=== PATIENT | male | born 1945 | race Caucasian/White ===

== ENCOUNTER 2021-01-24 11:41 | Inpatient (IN) | payer MEDICARE ==
[~2021-01-24] VITALS: Ht 198.1 cm; Wt 132.3 kg
[2021-01-24] VITALS (10 sets, daily range): BP systolic 119–159; BP diastolic 45–73
--- NOTE | 2021-01-24 12:28 | PHYS DOC ---
Past Medical History Past Medical History: No Pertinent History Past Surgical History: No Surgical History Smoking Status: Never Smoker Alcohol Use: None Drug Use: None General Adult EDM: Chief Complaint: HIP PAIN HPI: HPI: 75-year-old male presents complaining of right-sided hip pain after he fell directly on his hip just prior to arrival when he slipped and fell mechanically. He denies any preceding symptoms. He reports that any movement of his thigh or hip area causes extreme 10/10 pain. He is able to feel all sensation in his distal right leg. He denies any pain in the left side of his hip, low back, thigh, knee, sabillon or foot. The patient denies nausea, vomiting, fever, chills, chest pain, shortness of breath or any other complaints. Review of Systems: Review of Systems: ROS otherwise negative except for what was mentioned in the HPI Heart Score: C/O Chest Pain: No Allergies: Allergies: Allergies Coded Allergies Type Severity Reaction Last Updated Verified No Known Drug Allergies 01/24/21 No Physical Exam: PE: Constitutional: No acute distress, non-toxic appearance. HENT: Atraumatic, normocephalic. Eyes: Conjunctiva normal, normal tracking. Neck: Normal range of motion, supple. Cardiovascular: Heart rate regular rhythm. 2+ dorsalis pedis pulses, capillary refill less than 2 seconds bilateral lower extremities Lungs & Thorax: No respiratory distress, symmetrical expansion. Abdomen: Soft, no tenderness Skin: Warm, dry, no overlying skin changes over the lower extremities. Extremities: Tenderness is present to the right iliac crest area and right acetabular area, there is no left-sided tenderness. There is exquisite tenderness to the right hip with logroll of the right thigh. The patient is not able to bear weight. [No tenderness to the feet, ankles, leg, thigh, bilatera lly]. Neurologic: Alert and oriented X 3. Normal motor function of the lower extremities bilaterally. Normal sensory function of the lower extremities. No focal deficits noted. GCS 15. Psychologic: Affect normal, judgment normal, mood normal. Current Patient Data: Labs: Laboratory Tests Test 01/24/21 12:20 White Blood Count 11.1 x10^3/uL (4.0-11.0) Red Blood Count 4.60 x10^6/uL (4.30-5.70) Hemoglobin 14.9 g/dL (13.0-17.5) Hematocrit 42.5 % (39.0-53.0) Mean Corpuscular Volume 92 fL (79-100) Mean Corpuscular Hemoglobin 33 pg (25-35) Mean Corpuscular Hemoglobin Concent 35 g/dL (31-37) Red Cell Distribution Width 13.1 % (11.5-14.5) Platelet Count 189 x10^3/uL (140-400) Neutrophils (%) (Auto) 86 % (31-73) Lymphocytes (%) (Auto) 8 % (24-48) Monocytes (%) (Auto) 5 % (0-9) Eosinophils (%) (Auto) 1 % (0-3) Basophils (%) (Auto) 0 % (0-3) Neutrophils # (Auto) 9.5 x10^3/uL (1.8-7.7) Lymphocytes # (Auto) 0.9 x10^3/uL (1.0-4.8) Monocytes # (Auto) 0.6 x10^3/uL (0.0-1.1) Eosinophils # (Auto) 0.1 x10^3/uL (0.0-0.7) Basophils # (Auto) 0.0 x10^3/uL (0.0-0.2) Sodium Level 134 mmol/L (136-145) Potassium Level 3.7 mmol/L (3.5-5.1) Chloride Level 101 mmol/L (98-107) Carbon Dioxide Level 27 mmol/L (21-32) Anion Gap 6 (6-14) Blood Urea Nitrogen 17 mg/dL (8-26) Creatinine 1.1 mg/dL (0.7-1.3) Estimated GFR (Cockcroft-Gault) 65.6 Glucose Level 105 mg/dL (70-99) Calcium Level 8.8 mg/dL (8.5-10.1) Vital Signs: Vital Signs Date Time Temp Pulse Resp B/P (MAP) Pulse Ox O2 Delivery O2 Flow Rate FiO2 01/24/21 13:21 18 99 Room Air 01/24/21 12:38 16 100 Room Air 01/24/21 12:24 97.8 55 16 158/84 (108) 99 Room Air 97.8 Radiology/Procedures: Radiology/Procedures: AP portable chest radiograph 01/24/2021 Clinical History: Preoperative evaluation.. An AP supine portable digital radiograph of the chest was obtained. No previous studies are available for comparison. The costophrenic angles are cut off on this radiograph, left greater than right. The cardiac silhouette is borderline enlarged. The thoracic aorta is mildly tortuous. No acute pulmonary infiltrate is seen. No pleural effusion or pneumothorax is noted. An old healed fracture of the mid diaphysis of the right clavicle is seen. Degenerative changes are seen involving the thoracic spine along with both shoulders. IMPRESSION: No acute abnormality is seen. Electronically signed by: Sanjeev Blanco MD (01/24/2021 1:33 PM) PROCEDURE: HIP RIGHT 2V WITH PELVIS AP pelvis to include AP and lateral radiographs of the right hip 01/24/2021 CLINICAL HISTORY: 2 AP digital radiographs of pelvis to include both hips were obtained. AP and lateral radiographs of the right hip were obtained. An acute comminuted subcapital fracture of the right femoral neck is seen. The fracture fragments are slightly impacted. No dislocation is seen. The left hip is intact. No pelvic bone fracture is seen. Mild to moderate degenerative changes are seen involving both hips. IMPRESSION: Acute comminuted subcapital fracture of the right femoral neck. Electronically signed by: Sanjeev Blanco MD (01/24/2021 1:32 PM) Course & Med Decision Making: Course & Med Decision Making Radiology confirms a right femoral neck fracture with minimal displacement. Patient was given fentanyl and then morphine for pain control. Patient will be admitted to the hospital under Dr. Vance. I discussed case with Dr. Quinteros our orthopedic surgeon on-call, patient was made n.p.o. My Orders - REJI TREVINO DO Procedure Category Date Status Time Hip Right 2v With RAD 01/24/21 Taken Pelvis 12:34 Cbc W [employer] LAB 01/24/21 Complete 12:24 Basic Metabolic Panel LAB 01/24/21 Complete 12:24 Fentanyl Pf Vial PHA 01/24/21 Complete (Fentanyl 2ml Vial) 12:30 Chest Ap Only RAD 01/24/21 Taken 13:01 Morphine Sulfate PHA 01/24/21 Complete (Morphine Sulfate) 13:15 Sars Cov2 ([place]) LAB 01/24/21 Logged 13:04 Sars Antigen [place] Rapid LAB 01/24/21 Logged 13:04 [place] Order ADT 01/24/21 Transmitted 13:23 Code Status CODE 01/24/21 Transmitted 13:23 Vital Signs, Per Unit DU 01/24/21 In Process Protocol 13:23 Nothing By Mouth DIET 01/24/21 Transmitted Dinner Bedrest DU 01/24/21 In Process 13:23 Ondansetron Pf PHA 01/24/21 Logged (Zofran) 13:30 Fentanyl Pf Vial PHA 01/24/21 Logged (Fentanyl 2ml Vial) 13:30 Consult Physician By CONS 01/24/21 Transmitted Name 13:23 Departure Departure Impression: Primary Impression: Closed displaced fracture of right femoral neck Disposition: ADMITTED INPATIENT Admitting Physician: ASHUTOSH (Pinky) Condition: STABLE REJI TREVINO DO Jan 24, 2021 12:28
[2021-01-24] MEDS ORDERED: fentaNYL PF VIAL 100 MCG/2 ML VIAL IVP ONE (12:30)
[2021-01-24 12:47] LABS: BASO % 0 % (0-3); EOS # 0.1 x10^3/uL (0.0-0.7); EOS % 1 % (0-3); HEMATOCRIT 42.5 % (39.0-53.0); HEMOGLOBIN 14.9 g/dL (13.0-17.5); LYMPH # 0.9 x10^3/uL (1.0-4.8); LYMPH % 8 % (24-48); MEAN CORPUSCULAR HEMOGLOBIN 33 pg (25-35); MEAN CORPUSCULAR HGB CONC 35 g/dL (31-37); MEAN CORPUSCULAR VOLUME 92 fL (79-100); MONO # 0.6 x10^3/uL (0.0-1.1); MONO % 5 % (0-9); NEUT # 9.5 x10^3/uL (1.8-7.7); NEUT % 86 % (31-73); PLATELET COUNT 189 x10^3/uL (140-400); RED CELL DISTRIBUTION WIDTH 13.1 % (11.5-14.5); WHITE BLOOD COUNT 11.1 x10^3/uL (4.0-11.0)
[2021-01-24 12:58] LABS: CALCIUM 8.8 mg/dL (8.5-10.1); CREATININE 1.1 mg/dL (0.7-1.3); GFR 65.6; POTASSIUM 3.7 mmol/L (3.5-5.1)
[2021-01-24] MEDS ORDERED: MORPHINE SULFATE 10 MG/ML VIAL. IV ONE (13:15)
[2021-01-24] MEDS ORDERED: ONDANSETRON PF 4 MG/2 ML VIAL. IVP PRN (13:30)
--- NOTE | 2021-01-24 13:34 | RAD ---
AP pelvis to include AP and lateral radiographs of the right hip 01/24/2021 CLINICAL HISTORY: 2 AP digital radiographs of pelvis to include both hips were obtained. AP and later al radiographs of the right hip were obtained. An acute comminuted subcapital fracture of the right f emoral neck is seen. The fracture fragments are slightly impacted. No dislocation is seen. The left h ip is intact. No pelvic bone fracture is seen. Mild to moderate degenerative changes are seen involvi ng both hips. IMPRESSION: Acute comminuted subcapital fracture of the right femoral neck. Electronically signed by: Sanjeev Blanco MD (01/24/2021 1:32 PM) [id number]
--- NOTE | 2021-01-24 13:35 | RAD ---
AP portable chest radiograph 01/24/2021 Clinical History: Preoperative evaluation.. An AP supine portable digital radiograph of the chest was obtained. No previous studies are available for comparison. The costophrenic angles are cut off on this radiogr aph, left greater than right. The cardiac silhouette is borderline enlarged. The thoracic aorta is mi ldly tortuous. No acute pulmonary infiltrate is seen. No pleural effusion or pneumothorax is noted. A n old healed fracture of the mid diaphysis of the right clavicle is seen. Degenerative changes are se en involving the thoracic spine along with both shoulders. IMPRESSION: No acute abnormality is seen. Electronically signed by: Sanjeev Blanco MD (01/24/2021 1:33 PM) [id number]
--- NOTE | 2021-01-24 13:42 | PDOC1 ---
History and Physical Date of Admission Date of Admission DATE: 01/24/21 TIME: 13:41 Identification/Chief Complaint Chief Complaint right hip pain after fall today History of Present Illness History of Present Illness 75-year-old male presented to ER complaining of right-sided hip pain after he fell directly on his hip just prior to arrival when he slipped and fell mechanically. He was helping a friend caulk around a basement when he slipped and fell on his right hip on a concrete surface He reports that any movement of his thigh or hip area causes extreme 10/10 pain. He is able to feel all sensation in his distal right leg. He denies any pain in the left side of his hip, low back, thigh, knee, sabillon or foot. denies nausea, vomiting, fever, chills, chest pain, shortness of breath . bp high in ER , likely due to pain Past Medical History Past Medical History Past Medical History Past Medical History: No Pertinent History Past Surgical History: No Surgical History Smoking Status: Never Smoker Alcohol Use: None Drug Use: None FHX CAD Cardiovascular: No pertinent hx Pulmonary: No pertinent hx GI: No pertinent hx Heme/Onc: No pertinent hx Hepatobiliary: No pertinent hx Renal/: No pertinent hx Endocrine: No pertinent hx Family History Family History: High Cholestrol, Hypertension Social History Smoke: No ALCOHOL: occassional Drugs: None Current Problem List Problem List Problems Medical Problems: (1) Closed displaced fracture of right femoral neck Status: Acute Current Medications Current Medications Current Medications Fentanyl Citrate (Fentanyl 2ml Vial) 75 mcg 1X ONCE IVP Last administered on 01/24/21at 12:38; Start 01/24/21 at 12:30; Stop 01/24/21 at 12:31; Status DC Morphine Sulfate (Morphine Sulfate) 8 mg 1X ONCE IV Last administered on 01/24/21at 13:21; Start 01/24/21 at 13:15; Stop 01/24/21 at 13:16; Status DC Ondansetron HCl (Zofran) 4 mg PRN Q8HRS PRN IVP NAUSEA/VOMITING; Start 01/24/21 at 13:30; Stop 01/25/21 at 13:29 Fentanyl Citrate (Fentanyl 2ml Vial) 50 mcg PRN Q1HR PRN IVP PAIN; Start 01/24/21 at 13:30; Stop 01/25/21 at 13:29 Allergies Allergies: Coded Allergies: No Known Drug Allergies (Unverified , 01/24/21) ROS Review of System 14 pt ros otherwise neg General: No: Chills, Night Sweats, Fatigue, Malaise, Appetite, Other PSYCHOLOGICAL ROS: No: Anxiety, Behavioral Disorder, Concentration difficultie, Decreased libido, Depression, Disorientation, Hallucinations, Hostility, Irritablity, Memory difficulties, Mood Swings, Obsessive thoughts, Physical abuse, Sexual abuse, Sleep disturbances, Suicidal ideation, Other Eyes: No Blurry vision, No Decreased vision, No Double vision, No Dry eyes, No Excessive tearing, No Eye Pain, No Itchy Eyes, No Loss of vision, No Photophobia, No Scotomata, No Uses contacts, No Uses glasses, No Other HEENT: No: Heacaches, Visual Changes, Hearing change, Nasal congestion, Nasal discharge, Oral lesions, Sinus pain, Sore Throat, Epistaxis, Sneezing, Snoring, Tinnitus, Vertigo, Vocal changes, Other ALLERGY AND IMMUNOLOGY: No: Hives, Insect Bite Sensitivity, Itchy/Watery Eyes, Nasal Congestion, Post Nasal Drip, Seasonal Allergies, Other Hematological and Lymphatic: No: Bleeding Problems, Blood Clots, Blood Transfusions, Brusing, Night Sweats, Pallor, Swollen Lymph Nodes, Other ENDOCRINE: No: Breast Changes, Galactorrhea, Hair Pattern Changes, Hot Flashes, Malaise/lethargy, Mood Swings, Palpitations, Polydipsia/polyuria, Skin Changes, Temperature Intolerance, Unexpected Weight Changes, Other Respiratory: No: Cough, Hemoptysis, Orthopnea, Pleuritic Pain, Shortness of breath, SOB with excertion, Sputum Changes, Stridor, Tachypnea, Wheezing, Other Cardiovascular: No Chest Pain, No Palpitations, No Orthopnea, No Paroxysmal Noc. Dyspnea, No Edema, No Lt Headedness, No Other Gastrointestinal: No Nausea, No Vomiting, No Abdominal Pain, No Diarrhea, No Constipation, No Melena, No Hematochezia, No Other Genitourinary: No Dysuria, No Frequency, No Incontinence, No Hematuria, No Retention, No Discharge, No Urgency, No Pain, No Flank Pain, No Other, No , No , No , No , No , No , No Musculoskeletal: Yes Gait Disturbance, Yes Joint Pain, Yes Joint Stiffness, Yes Joint Swelling; No Muscle Pain, No Muscular Weakness, No Pain In:, No Swelling In:, No Other Neurological: Yes Gait Disturbance; No Behavorial Changes, No Bowel/Bladder ControlChng, No Confusion, No Dizziness, No Headaches, No Impaired Coord/balance, No Memory Loss, No Numbness/Tingling, No Seizures, No Speech Problems, No Tremors, No Visual Changes, No Weakness, No Other Skin: No Dry Skin, No Eczema, No Hair Changes, No Lumps, No Mole Changes, No Mottling, No Nail Changes, No Pruritus, No Rash, No Skin Lesion Changes, No Other, No Acne Physical Exam Physical Exam Eyes: Conjunctiva normal, EOMI, PERRLA Neck: Normal range of motion, supple. Cardiovascular: Heart rate regular rhythm. 2+ dorsalis pedis pulses, capillary refill less than 2 seconds bilateral lower extremities Lungs & Thorax: No respiratory distress, symmetrical expansion. Abdomen: Soft, no tenderness Skin: Warm, dry, no overlying skin changes over the lower extremities. Extremities: Tenderness is present to the right iliac crest area and right ac etabular area, there is no left-sided tenderness. There is exquisite tenderness to the right hip with logroll of the right thigh. The patient is not able to bear weight. [No tenderness to the feet, ankles, leg, thigh, bilaterally]. Neurologic: Alert and oriented X 3. Normal motor function of the lower extremities bilaterally. Normal sensory function of the lower extremities. No focal deficits noted. Psychologic: Affect normal, judgment normal, mood normal. General: Alert, Oriented X3, Cooperative, mild distress HEENT: Atraumatic, PERRLA, EOMI, Mucous membr. moist/pink Lungs: Clear to auscultation, Normal air movement Heart: S1S2, RRR, no thrills, no jug vein distention Breasts: Not examined Abdomen: Normal bowel sounds, Soft Rectal Exam: not examined Extremities: No cyanosis Neuro: Normal speech, Sensation intact, Cranial nerves 3-12 NL Psych/Mental Status: Mental status NL, Mood NL Vitals Vitals Vital Signs Date Time Temp Pulse Resp B/P (MAP) Pulse Ox O2 Delivery O2 Flow Rate FiO2 01/24/21 13:21 18 99 Room Air 01/24/21 12:24 97.8 55 158/84 (108) 97.8 Labs Labs Laboratory Tests Test 01/24/21 12:20 White Blood Count 11.1 x10^3/uL (4.0-11.0) Red Blood Count 4.60 x10^6/uL (4.30-5.70) Hemoglobin 14.9 g/dL (13.0-17.5) Hematocrit 42.5 % (39.0-53.0) Mean Corpuscular Volume 92 fL (79-100) Mean Corpuscular Hemoglobin 33 pg (25-35) Mean Corpuscular Hemoglobin Concent 35 g/dL (31-37) Red Cell Distribution Width 13.1 % (11.5-14.5) Platelet Count 189 x10^3/uL (140-400) Neutrophils (%) (Auto) 86 % (31-73) Lymphocytes (%) (Auto) 8 % (24-48) Monocytes (%) (Auto) 5 % (0-9) Eosinophils (%) (Auto) 1 % (0-3) Basophils (%) (Auto) 0 % (0-3) Neutrophils # (Auto) 9.5 x10^3/uL (1.8-7.7) Lymphocytes # (Auto) 0.9 x10^3/uL (1.0-4.8) Monocytes # (Auto) 0.6 x10^3/uL (0.0-1.1) Eosinophils # (Auto) 0.1 x10^3/uL (0.0-0.7) Basophils # (Auto) 0.0 x10^3/uL (0.0-0.2) Sodium Level 134 mmol/L (136-145) Potassium Level 3.7 mmol/L (3.5-5.1) Chloride Level 101 mmol/L (98-107) Carbon Dioxide Level 27 mmol/L (21-32) Anion Gap 6 (6-14) Blood Urea Nitrogen 17 mg/dL (8-26) Creatinine 1.1 mg/dL (0.7-1.3) Estimated GFR (Cockcroft-Gault) 65.6 Glucose Level 105 mg/dL (70-99) Calcium Level 8.8 mg/dL (8.5-10.1) Laboratory Tests Test 01/24/21 12:20 White Blood Count 11.1 x10^3/uL (4.0-11.0) Red Blood Count 4.60 x10^6/uL (4.30-5.70) Hemoglobin 14.9 g/dL (13.0-17.5) Hematocrit 42.5 % (39.0-53.0) Mean Corpuscular Volume 92 fL (79-100) Mean Corpuscular Hemoglobin 33 pg (25-35) Mean Corpuscular Hemoglobin Concent 35 g/dL (31-37) Red Cell Distribution Width 13.1 % (11.5-14.5) Platelet Count 189 x10^3/uL (140-400) Neutrophils (%) (Auto) 86 % (31-73) Lymphocytes (%) (Auto) 8 % (24-48) Monocytes (%) (Auto) 5 % (0-9) Eosinophils (%) (Auto) 1 % (0-3) Basophils (%) (Auto) 0 % (0-3) Neutrophils # (Auto) 9.5 x10^3/uL (1.8-7.7) Lymphocytes # (Auto) 0.9 x10^3/uL (1.0-4.8) Monocytes # (Auto) 0.6 x10^3/uL (0.0-1.1) Eosinophils # (Auto) 0.1 x10^3/uL (0.0-0.7) Basophils # (Auto) 0.0 x10^3/uL (0.0-0.2) Sodium Level 134 mmol/L (136-145) Potassium Level 3.7 mmol/L (3.5-5.1) Chloride Level 101 mmol/L (98-107) Carbon Dioxide Level 27 mmol/L (21-32) Anion Gap 6 (6-14) Blood Urea Nitrogen 17 mg/dL (8-26) Creatinine 1.1 mg/dL (0.7-1.3) Estimated GFR (Cockcroft-Gault) 65.6 Glucose Level 105 mg/dL (70-99) Calcium Level 8.8 mg/dL (8.5-10.1) Images Images PATIENT: EVER PUENTES ACCOUNT: [id number] : 1945 LOCATION: ER AGE: 75 SEX: M EXAM STATUS: PRE ER ORD. PHYSICIAN: REJI TREVINO DO REASON: hip pain from trauma not ready 12:40 PROCEDURE: HIP RIGHT 2V WITH PELVIS AP pelvis to include AP and lateral radiographs of the right hip 01/24/2021 CLINICAL HISTORY: 2 AP digital radiographs of pelvis to include both hips were obtained. AP and lateral radiographs of the right hip were obtained. An acute comminuted subcapital fracture of the right femoral neck is seen. The fracture fragments are slightly impacted. No dislocation is seen. The left hip is intact. No pelvic bone fracture is seen. Mild to moderate degenerative changes are seen involving both hips. IMPRESSION: Acute comminuted subcapital fracture of the right femoral neck. Electronically signed by: Sanjeev Blanco MD (01/24/2021 1:32 PM) [id number] DICTATED and SIGNED BY: SANJEEV BLANCO MD DATE: 01/24/21 [id number] VTE Prophylaxis Ordered VTE Prophylaxis Devices: Contraindicated VTE Pharmacological Prophylaxi: Yes Assessment/Plan Assessment/Plan IMPRESSION: Mechanical fall Acute comminuted subcapital fracture of the right femoral neck. Obesity PLAN ADMIT NPO CONSULT ORTHO DVT prophylaxis iv fluid support iv pain control PT/OT MAY NEED SNF VS HOME HEALTH POST SURGERY norvasc 5 mg po daily, observe iv pain control d/w er Justifications for Admission Other Justification RACHELLE NICOLE MD Jan 24, 2021 13:42
[2021-01-24] MEDS ORDERED: ZOLPIDEM 5 MG TABLET. PO PRN (14:45)
[2021-01-24] MEDS ORDERED: 0.9 % SODIUM CHLORIDE 10 ML DISP.SYRIN. IV PRN ×2 (14:45→17:00)
[2021-01-24] MEDS ORDERED: guaiFENesin ORAL 200 MG/10 ML LIQUID. PO PRN (14:45)
[2021-01-24] MEDS ORDERED: DOCUSATE SODIUM 100 MG CAPSULE. PO PRN (14:45)
[2021-01-24] MEDS ORDERED: ALBUTEROL SULFATE 2.5 MG/3 ML NEBU. NEB PRN (14:45)
[2021-01-24] MEDS ORDERED: ACETAMINOPHEN 325 MG TABLET. PO PRN (14:45)
[2021-01-24] MEDS ORDERED: SODIUM PHOSPHATES 19/7GM 133 ML ENEMA. PR PRN (14:45)
[2021-01-24] MEDS ORDERED: ONDANSETRON PF 4 MG/2 ML VIAL. IV PRN (14:45)
[2021-01-24] MEDS ORDERED: MAG HYDROX/ALUMINUM HYD/SIMETH 30 ML ORAL.SUSP PO PRN (14:45)
[2021-01-24] MEDS ORDERED: LORazepam 0.5 MG TABLET PO PRN (14:45)
[2021-01-24] MEDS ORDERED: HYDROmorphone 2 MG/ML VIAL IV PRN (14:45)
[2021-01-24] MEDS ORDERED: cloNIDine HCL 0.1 MG TABLET PO PRN (14:45)
[2021-01-24] MEDS: IV NORMAL SALINE 1000ML BAG 1,000 ML IV SCH ×2 (14:45→17:00)
[2021-01-24] MEDS: ENOXAPARIN 40 MG/0.4 ML SYRINGE. SQ SCH (15:00)
[2021-01-24] MEDS ORDERED: LIDOCAINE 2% PF 5 ML VIAL. ONE (15:11)
[2021-01-24] MEDS ORDERED: PROPOFOL 10 MG/ML (20ML) VIAL. IV ONE (15:11)
[2021-01-24] MEDS: fentaNYL PF VIAL 100 MCG/2 ML VIAL IVP PRN ×4 (15:45→21:23)
--- NOTE | 2021-01-24 16:52 | PDOC2 ---
CONSULT Date of Consult Date of Consult DATE: 01/24/21 TIME: 16:47 Reason for Consult Reason for Consult: Right femoral neck fracture. Identification/Chief Complaint Chief Complaint Right hip pain after ground-level fall. Source Source: Patient History of Present Illness Reason for Visit: Jose Maria is a pleasant 75-year-old male, admitted through the ER after ground-level fall. He was helping a friend caulk their foundation due to some leaks. He slipped on a wet outdoor rug and landed directly on the lateral side of his right hip. He had immediate pain and inability to bear weight. He was brought in via the ER where radiographs revealed a transcervical femoral neck fracture. He has been admitted for further management and operative treatment. Denies any prior history of injury to his right hip. Was ambulatory independently without assistive devices prior to his fall. Lives in a single-story home with no steps. Past Medical History Cardiovascular: No pertinent hx Pulmonary: No pertinent hx GI: No pertinent hx Heme/Onc: No pertinent hx Hepatobiliary: No pertinent hx Renal/: No pertinent hx Endocrine: No pertinent hx Family History Family History: High Cholestrol, Hypertension Social History No ALCOHOL: occassional Drugs: None Current Problem List Problem List Problems Medical Problems: (1) Closed displaced fracture of right femoral neck Status: Acute Current Medications Current Medications Current Medications Fentanyl Citrate (Fentanyl 2ml Vial) 75 mcg 1X ONCE IVP Last administered on 01/24/21at 12:38; Start 01/24/21 at 12:30; Stop 01/24/21 at 12:31; Status DC Morphine Sulfate (Morphine Sulfate) 8 mg 1X ONCE IV Last administered on 01/24/21at 13:21; Start 01/24/21 at 13:15; Stop 01/24/21 at 13:16; Status DC Ondansetron HCl (Zofran) 4 mg PRN Q8HRS PRN IVP NAUSEA/VOMITING Last administered on 01/24/21at 15:37; Start 01/24/21 at 13:30; Stop 01/24/21 at 16:11; Status DC Fentanyl Citrate (Fentanyl 2ml Vial) 50 mcg PRN Q1HR PRN IVP PAIN Last administered on 01/24/21at 15:45; Start 01/24/21 at 13:30; Stop 01/25/21 at 13:29 Sodium Chloride (Normal Saline Flush) 3 ml QSHIFT PRN IV AFTER MEDS AND BLOOD DRAWS; Start 01/24/21 at 14:45 Sodium Chloride 1,000 ml @ 100 mls/hr Q10H IV ; Start 01/24/21 at 14:45 Ondansetron HCl (Zofran) 4 mg PRN Q4HRS PRN IV NAUSEA/VOMITING; Start 01/24/21 at 14:45 Zolpidem Tartrate (Ambien) 5 mg PRN QHS PRN PO INSOMNIA; Start 01/24/21 at 14:45 Acetaminophen (Tylenol) 650 mg PRN Q4HRS PRN PO TEMP OVER 100.4F OR MILD PAIN; Start 01/24/21 at 14:45 Al Hydroxide/Mg Hydroxide (Mylanta Plus Xs) 30 ml PRN DAILY PRN PO HEARTBURN / GAS; Start 01/24/21 at 14:45 Clonidine HCl (Catapres) 0.1 mg PRN Q6HRS PRN PO SBP>160 OR DBP>90; Start 01/24/21 at 14:45 Sodium Monofluorophosphate (Fleet Adult) 133 ml PRN DAILY PRN IN CONSTIPATION; Start 01/24/21 at 14:45 Docusate Sodium (Colace) 100 mg PRN BID PRN PO HARD STOOLS; Start 01/24/21 at 14:45 Albuterol Sulfate (Ventolin Neb Soln) 2.5 mg PRN Q4HRS PRN NEB SHORTNESS OF BREATH; Start 01/24/21 at 14:45 Guaifenesin (Robitussin) 200 mg PRN Q4HRS PRN PO COUGH; Start 01/24/21 at 14:45 Lorazepam (Ativan) 0.5 mg PRN Q4HRS PRN PO ANXIETY / AGITATION; Start 01/24/21 at 14:45 Enoxaparin Sodium (Lovenox 40mg Syringe) 40 mg Q24H SQ ; Start 01/24/21 at 15:00 Amlodipine Besylate (Norvasc) 5 mg DAILY07 PO ; Start 01/24/21 at 14:45 Hydromorphone HCl (Dilaudid) 0.6 mg PRN Q3HRS PRN IV SEVERE PAIN 7-10; Start 01/24/21 at 14:45 Propofol (Diprivan) 200 mg STK-MED ONCE IV ; Start 01/24/21 at 15:11; Stop 01/24/21 at 15:12; Status DC Lidocaine HCl (Lidocaine Pf 2% Vial) 5 ml STK-MED ONCE .ROUTE ; Start 01/24/21 a t 15:11; Stop 01/24/21 at 15:12; Status DC Cefazolin Sodium 3 gm/Dextrose 100 ml @ 200 mls/hr 1X PREOP PRN IV PRIOR TO PROCEDURE; Start 01/24/21 at 17:00; Stop 01/25/21 at 16:59 Allergies Allergies: Coded Allergies: No Known Drug Allergies (Unverified , 01/24/21) ROS Musculoskeletal: Yes Gait Disturbance, Yes Joint Pain, Yes Joint Stiffness, Yes Joint Swelling, Yes Muscle Pain, Yes Muscular Weakness, Yes Pain In:, Yes Swelling In:, Yes Other Physical Exam General: Alert, Oriented X3, Cooperative MUSCULOSKELETAL: Abnormal exam of right (Right lower extremity is shortened and externally rotated. Limited range of motion secondary to pain. Distal neurovascular examination is intact.) Vitals VITALS Vital Signs Date Time Temp Pulse Resp B/P (MAP) Pulse Ox O2 Delivery O2 Flow Rate FiO2 01/24/21 13:51 14 Room Air 01/24/21 13:21 99 01/24/21 12:24 97.8 55 158/84 (108) 97.8 Labs Labs Laboratory Tests Test 01/24/21 12:20 01/24/21 13:22 White Blood Count 11.1 x10^3/uL (4.0-11.0) Red Blood Count 4.60 x10^6/uL (4.30-5.70) Hemoglobin 14.9 g/dL (13.0-17.5) Hematocrit 42.5 % (39.0-53.0) Mean Corpuscular Volume 92 fL (79-100) Mean Corpuscular Hemoglobin 33 pg (25-35) Mean Corpuscular Hemoglobin Concent 35 g/dL (31-37) Red Cell Distribution Width 13.1 % (11.5-14.5) Platelet Count 189 x10^3/uL (140-400) Neutrophils (%) (Auto) 86 % (31-73) Lymphocytes (%) (Auto) 8 % (24-48) Monocytes (%) (Auto) 5 % (0-9) Eosinophils (%) (Auto) 1 % (0-3) Basophils (%) (Auto) 0 % (0-3) Neutrophils # (Auto) 9.5 x10^3/uL (1.8-7.7) Lymphocytes # (Auto) 0.9 x10^3/uL (1.0-4.8) Monocytes # (Auto) 0.6 x10^3/uL (0.0-1.1) Eosinophils # (Auto) 0.1 x10^3/uL (0.0-0.7) Basophils # (Auto) 0.0 x10^3/uL (0.0-0.2) Sodium Level 134 mmol/L (136-145) Potassium Level 3.7 mmol/L (3.5-5.1) Chloride Level 101 mmol/L (98-107) Carbon Dioxide Level 27 mmol/L (21-32) Anion Gap 6 (6-14) Blood Urea Nitrogen 17 mg/dL (8-26) Creatinine 1.1 mg/dL (0.7-1.3) Estimated GFR (Cockcroft-Gault) 65.6 Glucose Level 105 mg/dL (70-99) Calcium Level 8.8 mg/dL (8.5-10.1) SARS-CoV-2 Antigen (Rapid) Negative (NEGATIVE) Laboratory Tests Test 01/24/21 12:20 01/24/21 13:22 White Blood Count 11.1 x10^3/uL (4.0-11.0) Red Blood Count 4.60 x10^6/uL (4.30-5.70) Hemoglobin 14.9 g/dL (13.0-17.5) Hematocrit 42.5 % (39.0-53.0) Mean Corpuscular Volume 92 fL (79-100) Mean Corpuscular Hemoglobin 33 pg (25-35) Mean Corpuscular Hemoglobin Concent 35 g/dL (31-37) Red Cell Distribution Width 13.1 % (11.5-14.5) Platelet Count 189 x10^3/uL (140-400) Neutrophils (%) (Auto) 86 % (31-73) Lymphocytes (%) (Auto) 8 % (24-48) Monocytes (%) (Auto) 5 % (0-9) Eosinophils (%) (Auto) 1 % (0-3) Basophils (%) (Auto) 0 % (0-3) Neutrophils # (Auto) 9.5 x10^3/uL (1.8-7.7) Lymphocytes # (Auto) 0.9 x10^3/uL (1.0-4.8) Monocytes # (Auto) 0.6 x10^3/uL (0.0-1.1) Eosinophils # (Auto) 0.1 x10^3/uL (0.0-0.7) Basophils # (Auto) 0.0 x10^3/uL (0.0-0.2) Sodium Level 134 mmol/L (136-145) Potassium Level 3.7 mmol/L (3.5-5.1) Chloride Level 101 mmol/L (98-107) Carbon Dioxide Level 27 mmol/L (21-32) Anion Gap 6 (6-14) Blood Urea Nitrogen 17 mg/dL (8-26) Creatinine 1.1 mg/dL (0.7-1.3) Estimated GFR (Cockcroft-Gault) 65.6 Glucose Level 105 mg/dL (70-99) Calcium Level 8.8 mg/dL (8.5-10.1) SARS-CoV-2 Antigen (Rapid) Negative (NEGATIVE) Images Images Three-view x-rays of the right hip and hemipelvis taken in the ER reveal a minimally displaced transcervical femoral neck fracture with high Pauwel's angle. No other acute abnormalities. Assessment/Plan Assessment/Plan 75-year-old male with right hip pain after ground-level fall with minimally displaced high Pauwel's angle transcervical neck fracture. -Discussed injury with patient and his . We also reviewed his radiographs. We discussed treatment options as well. -We will plan to proceed with right hip transcervical neck fracture percutaneous pinning with cannulated screws. -We discussed the risk of nonunion given the intra-articular nature of his fracture. This would potentially necessitate the need for total hip arthroplasty. -They demonstrated understanding of this as well as the additional risk, benefits, and alternatives to surgery. -They wish to proceed with recommended surgery. -Antibiotics on-call to the OR, 3 g of Ancef. -Surgical consent obtained. -We will plan to work with PT/OT tomorrow. BERNA MONTOYA DO Jan 24, 2021 16:52
--- NOTE | 2021-01-24 16:55 | PDOC4 ---
Operative Note Operative Note Date of surgery: 01/24/2021. Preoperative diagnosis: Minimally displaced transcervical right femoral neck fracture. Postoperative diagnosis: Same. Operative procedure: Right femoral neck fracture percutaneous pinning. Surgeon: Berna Montoya DO/SHITAL Assistants: None Anesthesia: General Antibiotics: Ancef Orthopedic implants: -Synthes 7.3 mm partially-threaded cannulated screws. Operative indications: Patient is a pleasant 75-year-old male who suffered a ground-level fall and was admitted to the hospital. Radiographs demonstrated a minimally displaced high Pauwel's angle transcervical femoral neck fracture. We discussed the indications, risks, benefits, and alternatives to surgical in tervention. Patient and family demonstrate understanding and wished to proceed with recommended surgery. Operative technique: The patient was met in the preoperative holding area and again the risk, benefits, and alternatives to surgery were reviewed with the patient. He again demonstrated understanding and wished to proceed with surgery. The operative extremity was then initialed after verifying correct surgical site with patient. Patient was then taken back to the operative suite. He was administered a general anesthetic by the department of anesthesiology and given 3g of Ancef preoperatively. He was placed on the operative table in supine position. A timeout protocol was performed to verify correct surgical site and procedure. All team members were in agreement. Patient was then placed into the traction boots and positioned on the fracture table. The right lower extremity was sterilely prepped and draped in the usual fashion. Surgery began by utilizing C arm fluoroscopy to localize insertion site for the threaded guide pins. A threaded guidepin was then introduced, and under fluoroscopic guidance, was directed across the femoral neck fracture into the femoral head. Its position was verified under C-arm fluoroscopy. This was then repeated with 2 additional threaded guide pins. A fourth guidepin was placed through the greater trochanter in a horizontal fashion to resist shear forces across the fracture site. Once verified to be adequate, measurements were taken and the pins were overdrilled. Four 7.3 mm partially-threaded cannulated screws were then guided over the pins securing fracture fixation. The guide pins were then removed. Final fluoroscopic images in the AP and lateral planes were taken and saved for later review. The wounds were then thoroughly irrigated with normal saline. Skin was closed with rhoda. Sterile dressings were then applied and the patient was awakened from general anesthesia. He was then transferred to the postoperative guralger in stable condition. Estimated blood loss: 10 mL. Complications: None. Specimens sent to pathology: None. Disposition: PACU and post surgical floor. Condition: Stable. BERNA MONTOYA DO Jan 24, 2021 16:55
[2021-01-24] MEDS ORDERED: fentaNYL PF VIAL 100 MCG/2 ML VIAL IVP PRN ×2 (17:00→17:30)
[2021-01-24] MEDS ORDERED: PROCHLORPERAZINE 5 MG TABLET. PO PRN (17:00)
[2021-01-24] MEDS ORDERED: CALCIUM CARBONATE 500 MG TAB.CHEW PO PRN (17:00)
[2021-01-24] MEDS ORDERED: MORPHINE SULFATE 2 MG/ML INJ. IVP PRN ×2 (17:00→17:30)
[2021-01-24] MEDS ORDERED: ceFAZolin SODIUM 3 GM in IV DEXTROSE 5% 100ML 100 ML IV PRN (17:00)
[2021-01-24] MEDS ORDERED: METOCLOPRAMIDE HCL 10 MG/2 ML VIAL. IVP PRN (17:00)
[2021-01-24] MEDS ORDERED: DEXTROSE 50% 25 GM / 50ML DISP.SYRIN. IV PRN (17:00)
[2021-01-24] MEDS: FERROUS SULFATE 325 MG TABLET. PO SCH (17:00)
[2021-01-24] MEDS ORDERED: diphenhydrAMINE 50 MG/ML VIAL IVP PRN (17:00)
[2021-01-24] MEDS: ceFAZolin SODIUM 3 GM in IV DEXTROSE 5% 100ML 100 ML IV SCH ×2 (17:12→22:45)
[2021-01-24] MEDS ORDERED: FAMOTIDINE 20 MG/2 ML VIAL ONE (17:24)
[2021-01-24] MEDS ORDERED: HYDROmorphone 2 MG/ML VIAL IVP PRN (17:30)
[2021-01-24] MEDS ORDERED: IV RINGERS,LACTATED 1000ML 1,000 ML IV SCH (17:30)
[2021-01-24] MEDS ORDERED: PROCHLORPERAZINE 10 MG/2 ML VIAL. IVP PRN (17:30)
[2021-01-24] MEDS ORDERED: SEVOFLURANE 31 TO 60 MINUTES. IH ONE (17:47)
[2021-01-24] MEDS ORDERED: BUPIVACAINE-EPI 0.5%-1:200000 MPF 30 ML VIAL. ONE (17:48)
[2021-01-24] MEDS ORDERED: ePHEDrine PF IN SALINE 50 MG/10 ML SYRINGE. IV ONE (17:50)
[2021-01-24] MEDS ORDERED: ONDANSETRON ODT 4 MG TAB.RAPDIS. PO PRN (18:00)
[2021-01-24] MEDS ORDERED: ONDANSETRON PF 4 MG/2 ML VIAL. ONE (18:00)
[2021-01-24] MEDS: ONDANSETRON PF 4 MG/2 ML VIAL. IVP SCH (18:00)
[2021-01-24] MEDS ORDERED: DEXAMETHASONE SOD PHOS 4 MG/ML VIAL ONE (18:00)
[2021-01-24] MEDS ORDERED: fentaNYL PF VIAL 100 MCG/2 ML VIAL ONE (18:25)
--- NOTE | 2021-01-24 20:17 | RAD ---
EXAMINATION: XR PELVIS 1-2V CLINICAL HISTORY: Status post right hip percutaneous pinning TECHNIQUE: XR PELVIS 1-2V COMPARISON: 01/24/2021 12:53 PM FINDINGS/ IMPRESSION: Interval right hip percutaneous pinning with placement of 4 partially threaded cannulated screws bret ersing the femoral head and neck. Improved fracture alignment, incompletely evaluated. Electronically signed by: Nathaniel Stockton DO (01/24/2021 8:15 PM) JINA
[2021-01-25] MEDS: IV NORMAL SALINE 1000ML BAG 1,000 ML IV SCH ×4 (00:45→21:18)
[2021-01-25 03:00] VITALS: BP 114/68
[2021-01-25] MEDS: fentaNYL PF VIAL 100 MCG/2 ML VIAL IVP PRN (03:01)
[2021-01-25] MEDS: ceFAZolin SODIUM 3 GM in IV DEXTROSE 5% 100ML 100 ML IV SCH ×2 (04:59→11:13)
[2021-01-25] MEDS: ONDANSETRON PF 4 MG/2 ML VIAL. IVP SCH ×3 (05:46→10:51)
[2021-01-25] MEDS ORDERED: MAGNESIUM HYDROXIDE 2,400 MG/30 ML ORAL.SUSP. PO PRN (06:00)
[2021-01-25 07:15] VITALS: BP 136/73
[2021-01-25 08:19] LABS: PROTHROMBIN TIME PATIENT 14.1 SEC (11.7-14.0)
[2021-01-25] MEDS ORDERED: oxyCODONE/APAP 5/325 1 TAB TABLET PO PRN (08:30)
[2021-01-25] MEDS ORDERED: oxyCODONE IR 5 MG TABLET PO ONE (08:30)
[2021-01-25] MEDS: MULTIVITAMIN with MINERAL TABLET. PO SCH (09:21)
[2021-01-25] MEDS: FERROUS SULFATE 325 MG TABLET. PO SCH ×2 (09:21→17:00)
[2021-01-25] MEDS: SENNOSIDES/DOCUSATE 8.6/50MG TABLET. PO SCH (09:22)
[2021-01-25] MEDS: ACETAMINOPHEN 500 MG TABLET PO SCH ×3 (09:27→21:17)
[2021-01-25 10:58] VITALS: BP 147/60
--- NOTE | 2021-01-25 11:08 | NUR ---
SW following. Discussed with RN, pt from home with , room air, regular diet. PT/OT pending weight bearing status. Pt had surgery on 01/24. Rapid COVID-19 negative. SW will continue to follow.
[2021-01-25] MEDS ORDERED: ONDANSETRON ODT 4 MG TAB.RAPDIS. PO PRN (12:00)
[2021-01-25] MEDS ORDERED: ONDANSETRON PF 4 MG/2 ML VIAL. IVP PRN (12:00)
--- NOTE | 2021-01-25 12:56 | PDOC ---
[employer] PROGRESS NOTE Date of Service DOS: DATE: 01/25/21 TIME: 12:54 Chief Complaint Chief Complaint Mechanical fall History of Present Illness History of Present Illness 75-year-old male presented to ER complaining of right-sided hip pain after he fell directly on his hip just prior to arrival when he slipped and fell mechanically. He was helping a friend caulk around a basement when he slipped and fell on his right hip on a concrete surface He reports that any movement of his thigh or hip area causes extreme 10/10 pain. He is able to feel all sensation in his distal right leg. He denies any pain in the left side of his hip, low back, thigh, knee, sabillon or foot. denies nausea, vomiting, fever, chills, chest pain, shortness of breath . bp high in ER , likely due to pain 01/25 Patient underwent ORIF yesterday. Complaining of ongoing pain but tolerating with current pain meds. PT OT once patient cleared for weightbearing. Otherwise no changes to current plan. Vitals/I&O Vitals/I&O: Vital Signs Date Time Temp Pulse Resp B/P (MAP) Pulse Ox O2 Delivery O2 Flow Rate FiO2 01/25/21 10:58 98.0 63 20 147/60 (89) 96 Room Air 98.0 01/25/21 10:48 2.0 I & O 01/24/21 01/24/21 01/25/21 15:00 23:00 07:00 Intake Total 850 ml 960 ml Output Total 560 ml 1050 ml Balance 290 ml -90 ml Physical Exam General: Alert, Oriented X3, Cooperative Heart: Regular rate, Normal S1 Lungs: Clear Abdomen: Normal bowel sounds, Soft Extremities: Normal pulses, Other (Range of motion limited by pain) Skin: No significant lesion Labs Labs: Laboratory Tests Test 01/24/21 13:22 01/25/21 07:25 SARS-CoV-2 RNA (SHAHIDA) Invalid (Negative) SARS-CoV-2 Antigen (Rapid) Negative (NEGATIVE) Prothrombin Time 14.1 SEC (11.7-14.0) Prothromb Time International Ratio 1.1 (0.8-1.1) Assessment and Plan Assessmemt and Plan Problems Medical Problems: (1) Closed displaced fracture of right femoral neck Status: Acute Assessment/Plan Assessment/Plan Mechanical fall Acute comminuted subcapital fracture of the right femoral neck. Obesity PLAN ADMIT NPO CONSULT ORTHO patient is now status post surgery DVT prophylaxis iv fluid support iv pain control PT/OT MAY NEED SNF VS HOME HEALTH POST SURGERY norvasc 5 mg po daily, observe pain control Comment Review of Relevant I have reviewed the following items donte (where applicable) has been applied. Medications: Current Medications Medications (Trade) Dose Ordered Sig/Kira Route PRN Reason Start Time Stop Time Status Last Admin Dose Admin Morphine Sulfate (Morphine Sulfate) 8 mg 1X ONCE IV 01/24/21 13:15 01/24/21 13:16 DC 01/24/21 13:21 Ondansetron HCl (Zofran) 4 mg PRN Q8HRS PRN IVP NAUSEA/VOMITING 01/24/21 13:30 01/24/21 16:11 DC 01/24/21 15:37 Fentanyl Citrate (Fentanyl 2ml Vial) 50 mcg PRN Q1HR PRN IVP PAIN 01/24/21 13:30 01/25/21 13:29 01/25/21 03:01 Sodium Chloride 1,000 ml @ 100 mls/hr Q10H IV 01/24/21 14:45 01/25/21 11:13 Zolpidem Tartrate (Ambien) 5 mg PRN QHS PRN PO INSOMNIA 01/24/21 14:45 01/24/21 21:23 Amlodipine Besylate (Norvasc) 5 mg DAILY07 PO 01/24/21 14:45 01/25/21 09:22 Cefazolin Sodium 3 gm/Dextrose 100 ml @ 200 mls/hr 1X PREOP PRN IV PRIOR TO PROCEDURE 01/24/21 17:00 01/25/21 16:59 01/24/21 17:02 Morphine Sulfate (Morphine Sulfate) 2 mg PRN Q1HR PRN IVP PAIN 01/24/21 17:00 01/24/21 18:48 Multivitamins (Thera M Plus) 1 tab DAILY PO 01/25/21 09:00 01/25/21 09:21 Senna/Docusate Sodium (Senna Plus) 1 tab DAILY PO 01/25/21 09:00 01/25/21 09:22 Ferrous Sulfate (Feosol) 325 mg BIDWMEALS PO 01/24/21 17:00 01/25/21 09:21 Magnesium Hydroxide (Milk Of Magnesia) 2,400 mg 1X PRN PRN PO CONSTIPATION 01/25/21 06:00 01/26/21 05:59 01/25/21 09:23 Acetaminophen (Tylenol) 1,000 mg Q6H PO 01/25/21 09:00 01/25/21 09:27 Cefazolin Sodium 3 gm/Dextrose 100 ml @ 200 mls/hr Q6H IV 01/24/21 23:00 01/25/21 11:29 DC 01/25/21 11:13 Fentanyl Citrate (Fentanyl 2ml Vial) 50 mcg PRN Q5MIN PRN IVP MODERATE PAIN 4-6 01/24/21 17:30 01/25/21 17:29 01/24/21 18:38 Bupivacaine HCl/ Epinephrine Bitart (Sensorcain-Epi 0.5%-1:[id number] Mpf) 30 ml STK-MED ONCE .ROUTE 01/24/21 17:48 01/24/21 17:48 DC 01/24/21 17:25 Oxycodone HCl (Roxicodone) 10 mg 1X ONCE PO 01/25/21 08:30 01/25/21 08:31 DC 01/25/21 09:22 Justifications for Admission Other Justification YO LOPEZ MD Jan 25, 2021 12:56
[2021-01-25 14:47] VITALS: BP 150/69
[2021-01-25] MEDS: ENOXAPARIN 40 MG/0.4 ML SYRINGE. SQ SCH (15:19)
[2021-01-25] MEDS ORDERED: BISACODYL 10 MG SUPP.RECT. PR PRN (16:00)
[2021-01-25 19:00] VITALS: BP 131/55
[2021-01-25] MEDS: ZOLPIDEM 5 MG TABLET. PO PRN ×2 (21:18→22:18)
[2021-01-25] MEDS: oxyCODONE IR 5 MG TABLET PO PRN (21:18)
[2021-01-25 23:00] VITALS: BP 135/72
[2021-01-26 02:45] VITALS: BP 138/74
[2021-01-26] MEDS: ACETAMINOPHEN 500 MG TABLET PO SCH ×4 (02:57→21:23)
[2021-01-26] MEDS: oxyCODONE IR 5 MG TABLET PO PRN ×3 (03:44→21:30)
[2021-01-26] MEDS: IV NORMAL SALINE 1000ML BAG 1,000 ML IV SCH ×2 (06:45→17:00)
[2021-01-26 07:12] VITALS: BP 149/80
[2021-01-26 07:35] LABS: HEMOGLOBIN 14.1 g/dL (13.0-17.5)
[2021-01-26 07:42] LABS: PROTHROMBIN TIME PATIENT 14.8 SEC (11.7-14.0)
[2021-01-26] MEDS: SENNOSIDES/DOCUSATE 8.6/50MG TABLET. PO SCH (09:41)
[2021-01-26] MEDS: MULTIVITAMIN with MINERAL TABLET. PO SCH (09:41)
[2021-01-26] MEDS: FERROUS SULFATE 325 MG TABLET. PO SCH ×2 (09:41→17:20)
[2021-01-26 11:00] VITALS: BP 146/59
--- NOTE | 2021-01-26 11:22 | NUR ---
HUNTER following. Discussed with RN, therapy recommending SNF. HUNTER met with pt and pt's spouse at bedside. They are agreeable to SNF and would like [facility] and [facility] as second choice. Referral faxed to [facility]. HUNTER spoke with Rosa at [facility] stating we need to know today if pt is accepted for tomorrow as we cannot have pt sitting here when he doesn't need to be in the hospital anymore. Rosa verbalized understanding. HUNTER requested Kaykay at [facility] take a look at the referral to have back up acceptance incase [facility] denies. HUNTER will continue to follow. Addendum: 01/26/21 at 1502 by RADHA HARRISON Pt accepted at [facility] for discharge tomorrow (01/27/21). RN notified.
--- NOTE | 2021-01-26 14:29 | PDOC ---
[employer] PROGRESS NOTE Date of Service DOS: DATE: 01/26/21 TIME: 14:28 Chief Complaint Chief Complaint Mechanical fall History of Present Illness History of Present Illness 75-year-old male presented to ER complaining of right-sided hip pain after he fell directly on his hip just prior to arrival when he slipped and fell mechanically. He was helping a friend caulk around a basement when he slipped and fell on his right hip on a concrete surface He reports that any movement of his thigh or hip area causes extreme 10/10 pain. He is able to feel all sensation in his distal right leg. He denies any pain in the left side of his hip, low back, thigh, knee, sabillon or foot. denies nausea, vomiting, fever, chills, chest pain, shortness of breath . bp high in ER , likely due to pain 01/25 Patient underwent ORIF yesterday. Complaining of ongoing pain but tolerating with current pain meds. PT OT once patient cleared for weightbearing. Otherwise no changes to current plan. 01/26/2021 No acute events overnight. Patient states that his pain is well controlled until he actually moves. Will remain nonweightbearing to the hip area until further notice from orthopedics. Patient is planning to go to [place] or [facility] for rehab. Patient's chart, labs, images were reviewed and discussed with RN Vitals/I&O Vitals/I&O: Vital Signs Date Time Temp Pulse Resp B/P (MAP) Pulse Ox O2 Delivery O2 Flow Rate FiO2 01/26/21 11:00 97.4 61 16 146/59 (88) 95 Room Air 97.4 01/25/21 10:48 2.0 I & O 01/25/21 01/25/21 01/26/21 15:00 23:00 07:00 Intake Total 1360 ml 1750 ml 200 ml Output Total 1700 ml 1575 ml Balance 1360 ml 50 ml -1375 ml Physical Exam General: Alert, Oriented X3, Cooperative Heart: Regular rate, Normal S1 Lungs: Clear Abdomen: Normal bowel sounds, Soft Extremities: Normal pulses, Other (Range of motion limited by pain) Skin: No significant lesion Labs Labs: Laboratory Tests Test 01/26/21 07:25 Hemoglobin 14.1 g/dL (13.0-17.5) Hematocrit 40.0 % (39.0-53.0) Mean Corpuscular Hemoglobin Concent 35 g/dL (31-37) Prothrombin Time 14.8 SEC (11.7-14.0) Prothromb Time International Ratio 1.2 (0.8-1.1) Assessment and Plan Assessmemt and Plan Problems Medical Problems: (1) Closed displaced fracture of right femoral neck Status: Acute Comment Review of Relevant I have reviewed the following items donte (where applicable) has been applied. Justifications for Admission Other Justification KEN BROWER MD Jan 26, 2021 14:29
[2021-01-26 15:00] VITALS: BP 134/79
[2021-01-26] MEDS: ENOXAPARIN 40 MG/0.4 ML SYRINGE. SQ SCH (16:32)
[2021-01-26 19:00] VITALS: BP 144/80
[2021-01-26] MEDS: ZOLPIDEM 5 MG TABLET. PO PRN (21:23)
[2021-01-26 23:00] VITALS: BP 133/70
[2021-01-27] MEDS: ACETAMINOPHEN 500 MG TABLET PO SCH ×2 (02:49→09:21)
[2021-01-27] MEDS: oxyCODONE IR 5 MG TABLET PO PRN ×2 (02:52→13:27)
[2021-01-27 03:00] VITALS: BP 162/81
[2021-01-27 07:15] VITALS: BP 150/75
[2021-01-27 07:15] LABS: HEMATOCRIT 39.8 % (39.0-53.0)
[2021-01-27] MEDS: MULTIVITAMIN with MINERAL TABLET. PO SCH (09:20)
[2021-01-27] MEDS: FERROUS SULFATE 325 MG TABLET. PO SCH (09:20)
[2021-01-27] MEDS: SENNOSIDES/DOCUSATE 8.6/50MG TABLET. PO SCH (09:20)
[2021-01-27] MEDS ORDERED: AMLO-186 PO (10:33)
[2021-01-27] MEDS ORDERED: OXYC-325 PO (10:35)
--- NOTE | 2021-01-27 10:44 | SNU/HH DC ---
DISCHARGE ORDERS DISCHARGE INFORMATION: DISCHARGE DATE: Jan 27, 2021 FINAL DIAGNOSIS Problems Medical Problems: (1) Closed displaced fracture of right femoral neck Status: Acute CONDITION ON DISCHARGE: Stable CODE STATUS: Code Status: Full RETIREMENT: SNF STAY <30 DAYS: Yes POST DISCHARGE ORDERS: ACTIVITY ORDERS: Activity as tolerated WEIGHT BEARING STATUS: Partial weight bearing DIET AFTER DISCHARGE: Cardiac FOLLOW-UP: PHYSICIAN FOLLOW-UP: PCP [facility] after discharge ADDITIONAL FOLLOW-UP: Orthopedica surgery LAB ORDERS FOR FOLLOW-UP: CBC, CMP TREATMENT/EQUIPMENT ORDERS: Physical Therapy For: Evalulation/Treatment Occupational Therapy For: Evaluation/Treatment DISCHARGE MEDICATIONS: Home Meds Active Scripts Oxycodone HCl/Acetaminophen (Percocet 5-325 mg Tablet) 1 Each Tablet, 1 TAB PO QIDPRN PRN for PAIN MDD 4 Tablet(s) for 3 Days, #20 TAB 0 Refills Prov:KEN BROWER MD 01/27/21 Amlodipine Besylate (AMLODIPINE BESYLATE) 5 Mg Tablet, 5 MG PO DAILY07 for blood pressure for 30 Days, #30 TAB 1 Refill Prov:KEN BROWER MD 01/27/21 KEN BROWER MD Jan 27, 2021 10:44
[2021-01-27 10:53] VITALS: BP 155/75
--- NOTE | 2021-01-27 11:05 | NUR ---
HUNTER following. Discussed with RN, discharge orders faxed to [facility], awaiting transportation time. HUNTER will continue to follow. Addendum: 01/27/21 at 1157 by RADHA HARRISON [place] arranged transportation for 1330. RN notified.
== END 2021-01-27 13:38 | DRG 482 ==
LOC: ER 11:41 → 4 NORTH 13:17
PROVIDERS: ADMIT Family Medicine; ATTEND Family Medicine
PROC: 0QH634Z Insertion of Internal Fixation Device into Right Upper Femur, Percutaneous Approach (ICD-10-PCS; principal; 2021-01-24 17:00)
DX: S72.031A Displaced midcervical fracture of right femur, initial encounter for closed fracture (principal); E66.9 Obesity, unspecified; S72.011A Unspecified intracapsular fracture of right femur, initial encounter for closed fracture; W01.0XXA Fall on same level from slipping, tripping and stumbling without subsequent striking against object, initial encounter; Z20.822 Contact with and (suspected) exposure to COVID-19; Z79.899 Other long term (current) drug therapy; Z82.49 Family history of ischemic heart disease and other diseases of the circulatory system; Z68.33 Body mass index [BMI] 33.0-33.9, adult; Y93.89 Activity, other specified; Y92.89 Other specified places as the place of occurrence of the external cause; Y99.8 Other external cause status
CPT/HCPCS: 36415; 71045; 72170; 73502; 76000; 80048; 85014; 85018; 85025; 85610; 87426; 96374; 96375; A4930; A6223; A6253; A6402; C1713; C1769; J0690; J1100; J1170; J1650; J2270; J2405; J2704; J3010; J3490; J7030; J7060; U0003; U0005; 97110-GP; 97530-GO; 97530-GP; 97535-GO; 99285-25; G0378